=== PATIENT | female | born 2000 | race Caucasian/White ===

== ENCOUNTER 2023-08-27 01:40 | Inpatient (IN) ==
[2023-08-27 04:40] LABS: Hematocrit (blood only) 30.7 % (37.0-47.0); Hemoglobin 10.3 g/dl (12.0-16.0); Mean Corpuscular Hemoglobin 28.3 pg (25.0-34.0); Mean Corpuscular Hgb Conc 33.6 g/dL (32.0-36.0); Mean Corpuscular Volume 84.3 fL (80.0-100.0); Mean Platelet Volume 11.2 fL (9.4-12.4); Platelet Count 221 K/uL (130-400); RDW Coefficient of Variation 12.9 % (11.5-14.5); RDW Standard Deviation 39.5 fL (36.4-46.3); Red Blood Count 3.64 M/uL (4.20-5.40)
[2023-08-27] MEDS ORDERED: LIDOCAINE 1% LOCAL 20 ML VIAL INFIL PRN (04:41)
[2023-08-27] MEDS ORDERED: OXYTOCIN 30 UNITS/500 ML BAG IV PRN ×3 (04:41→11:51)
[2023-08-27] MEDS ORDERED: LACTATED RINGER'S 1,000 ML IV PRN (04:41)
--- NOTE | 2023-08-27 07:04 | Labor Progress Brief Note ---
Date of Service August 27, 2023 Subjective Patient notes contractions. thinks more regular but strength has not increased. Assessment & Plan (1) Supervision of normal first : Trimester: third trimester Qualified Code(s): Z34.03 - Encounter for supervision of normal first , third trimester Plan Has been 6+hours since rom. Not alot of progress. arom of forebag and will add pitocin. Fetus category one. Patient agrees with plan. Admission and Anticipated Discharge Date Admission Date: August 27, 2023 Physical Exam Physical Exam: cx--5/100/-2 toco--q3-6 efm--120s wtih mod variabiltiy, accels to 160, no decels Results & Data Vital Signs (Past 12 Hours) Vital Signs Temp Pulse Resp BP O2 Del Method 08/27/23 06:06 36.8 C 08/27/23 04:11 36.9 C 78 18 123/83 08/27/23 01:55 36.8 C 18 Room Air 08/27/23 01:55 36.8 C 89 18 136/86 Coding Level of Care Code None Diagnoses Encounter for supervision of normal first in third trimester Z34.03 Trimester: third trimester
[2023-08-27] MEDS ORDERED: SODIUM CHLORIDE 0.9% PF INJ 10 ML VIAL ONE (08:00)
[2023-08-27] MEDS ORDERED: fentANYL 2 MCG/ML BUPIVacaine 0.125%-NSS 100ML BAG ONE (08:00)
[2023-08-27] MEDS ORDERED: BUPIVACAINE 0.25% PF 30 ML VIAL ONE (08:00)
[2023-08-27] MEDS ORDERED: ePHEDrine sulfate 50 MG/ML AMP ONE (08:00)
[2023-08-27] MEDS ORDERED: fentaNYL citrate PF 100 MCG/2 ML VIAL ONE (08:00)
[2023-08-27] MEDS ORDERED: LIDOCAINE 2%/EPINEPHRINE 1:200,000 20 ML PF ONE (08:00)
[2023-08-27] MEDS ORDERED: NALOXONE HCL 1 MG in SODIUM CHLORIDE 0.9% 1,000 ML IV PRN (08:08)
[2023-08-27] MEDS ORDERED: ROPIVACAINE 0.5% PF 5 MG/ML 20 ML VIAL EPI PRN (08:08)
[2023-08-27] MEDS ORDERED: fentANYL 2 MCG/ML BUPIVacaine 0.125%-NSS 100ML BAG EPI PRN (08:08)
[2023-08-27] MEDS ORDERED: BUPIVACAINE 0.25% PF 30 ML VIAL EPI STA (08:08)
[2023-08-27] MEDS ORDERED: BUPIVACAINE 0.25% PF 30 ML VIAL EPI PRN (08:08)
[2023-08-27] MEDS ORDERED: fentaNYL citrate PF 100 MCG/2 ML VIAL EPI STA (08:08)
[2023-08-27] MEDS ORDERED: LIDOCAINE 2% MPF LOCAL 5 ML VIAL EPI PRN (08:08)
[2023-08-27] MEDS ORDERED: ePHEDrine sulfate 50 MG/ML AMP IV PRN (08:08)
[2023-08-27] MEDS ORDERED: SODIUM CHLORIDE 0.9% PF INJ 10 ML VIAL EPI PRN (08:08)
[2023-08-27] MEDS ORDERED: diphenhydrAMINE 50 MG/ML VIAL IV PRN (08:08)
[2023-08-27] MEDS ORDERED: NALBUPHINE HCL INJ 10 MG/ML AMP IV PRN (08:08)
[2023-08-27] MEDS ORDERED: fentaNYL citrate PF 100 MCG/2 ML VIAL EPI PRN (08:08)
[2023-08-27] MEDS ORDERED: NALOXONE HCL 0.4 MG/1 ML VIAL/CARP IV PRN (08:08)
[2023-08-27] MEDS ORDERED: LIDOCAINE 2%/EPINEPHRINE 1:200,000 20 ML PF EPI STA (08:08)
[2023-08-27] MEDS ORDERED: SODIUM CHLORIDE 0.9% PF INJ 10 ML VIAL EPI STA (08:08)
--- NOTE | 2023-08-27 08:08 | Anesthesiology Consultation ---
Date of Service August 27, 2023 Assessment & Plan (1) Encounter for pre-operative examination: Chart Review Chart Review: Patient NOT seen in Pre Admission Testing and Acceptable Risk for Labor Epidural Consults Requested none History Height/Weight Height: 5 ft 3 in Weight: 74.843 kg Allergies Allergy/AdvReac Type Severity Reaction Status Date / Time No Known Allergies Allergy Verified 08/27/23 04:27 Medications Home Medications Medication Instructions Recorded Confirmed Last Taken prenat.vits,hemant,jyg-mryq-ralid 1 tab PO DAILY 01/20/23 08/27/23 08/26/23 Active Medications Generic Name Dose Route Start Last Admin Trade Name Freq PRN Reason Stop Dose Admin Lactated Ringer's 1,000 mls @ 125 mls/hr 08/27/23 04:41 08/27/23 07:07 Lr IV 08/29/23 04:40 125 mls/hr .Q8H PRN Administration L&D Protocol Protocol Oxytocin 30 units in 500 mls @ 1 mls/hr 08/27/23 07:00 08/27/23 07:39 Pitocin IV 08/29/23 06:59 0.06 units/hr .Q24H PRN 1 mls/hr Labor Induction/Augmentation Administration Protocol 0.06 UNITS/HR Past Medical History Medical History Depression Anxiety Varicella vaccine Past Family History Family History Grandmother Breast cancer Denies family history of Ovarian cancer Prostate cancer Myocardial infarction Colorectal cancer Past Surgical History Surgical History S/P wisdom tooth extraction H/O oral surgery Social History Smoking Status: Never smoker Do You Dip or Chew Tobacco: No Hx Alcohol Use: No Hx Substance Use: No Physical Exam Vital Signs Last Vital Signs Temp 98.2 F 08/27/23 06:06 Pulse 80 08/27/23 07:01 Resp 18 08/27/23 04:11 BP 130/90 08/27/23 07:01 O2 Del Method Room Air 08/27/23 01:55 Testing Laboratory Results 08/27/23 03:01
[2023-08-27] MEDS ORDERED: ONDANSETRON INJ 2 MG/ML 2 ML VIAL IV PRN (10:40)
[2023-08-27] MEDS ORDERED: oxyCODONE/ACETAMINOPHEN 5mg/325mg TAB PO PRN (11:51)
[2023-08-27] MEDS ORDERED: BENZOCAINE 20% SPRY 85 APPLN/85 GM CAN EXT PRN (11:51)
[2023-08-27] MEDS ORDERED: DIPHTHERIA/TETANUS/PERTUSSIS Vaccine (Tdap, Age 7+yrs) 0.5mL SYR/VL IM ONE (11:51)
[2023-08-27] MEDS ORDERED: ACETAMINOPHEN 325 MG TAB PO PRN (11:51)
[2023-08-27] MEDS ORDERED: HYDROCORTISONE ACETATE 25 MG SUPP PR PRN (11:51)
[2023-08-27] MEDS ORDERED: bisacodyL 10 MG SUPP PR PRN (11:51)
--- NOTE | 2023-08-27 11:57 | Delivery Summary ---
Vaginal Delivery Summary Date of Service August 27, 2023 Vaginal Delivery Summary and 2nd Degree LAC Patient is a 22-year-old 1 P0 female EDC of 11-23 who presented with spontaneous rupture of membranes at approximately midnight. 4 eden were ruptured for clear fluid and Pitocin augmentation was begun. She progressed to full dilation with epidural analgesia. She pushed effectively over intact perineum for delivery of a viable male infant. Rest of the infant delivered with hyperflexion of the hips. The was then placed on the mother's abdomen for further attention and drying. He was vigorous and moving all 4 limbs. The cord was clamped and cut after 1 minute. After cord blood was obtained, the placenta was expressed intact with a three-vessel cord. bleeding was controlled with dilute Pitocin and fundal massage. Second-degree perineal laceration was repaired with 3-0 chromic in the usual fashion. A right labial first-degree laceration was not bleeding and therefore not repaired. Estimated blood loss 200 cc. Mother and infant doing well after delivery. [facility] Vaginal Delivery Charge Delivery Type Details: and 2nd Degree LAC
--- NOTE | 2023-08-27 13:14 | Anesthesia Procedure Note ---
Date of Service August 27, 2023 Anesthesia Post Epidural Note Vital Signs Vital Signs: Temp Pulse Resp BP Pulse Ox O2 Del Method 98.2 F 82 22 129/74 95 Room Air 08/27/23 10:04 08/27/23 13:00 08/27/23 10:04 08/27/23 13:00 08/27/23 11:40 08/27/23 01:55 Notes Mental Status: alert / awake / arousable and participated in evaluation Nausea / Vomiting: adequately controlled Pain: adequately controlled Airway Patency, RR, SpO2: stable & adequate BP & HR: stable & adequate Hydration State: stable & adequate Neuraxial Anesthesia: was administered and sensory block is resolving Anesthetic Complications: no major complications apparent and Pt Satisfied with anesthetic care Epidural: Removed without complications and With tip intact
[2023-08-27] MEDS: IBUPROFEN 600 MG TAB PO PRN (17:09)
[2023-08-27] MEDS: DOCUSATE SODIUM 100 MG CAP PO SCH (20:46)
[2023-08-28] MEDS: IBUPROFEN 600 MG TAB PO PRN ×3 (01:51→17:05)
--- NOTE | 2023-08-28 06:38 | Obstetrical Progress Note ---
Date of Service <Carmen Singh MD - Last Filed: 08/28/23 07:12> August 28, 2023 Assessment & Plan <Carmen Singh MD - Last Filed: 08/28/23 07:12> (1) Encounter for assessment: Plan Patient with the above mentioned history and findings was evaluated at bedside and found awake, alert, oriented in all spheres, afebrile, and in no acute distress. Vital signs showed no fever and blood pressures remained stable and she has remained without symptoms of severity (e.g. vision changes, headaches, oliguria, etc.). Her blood type is A positive and today's hemoglobin is 8.5 g/dL. She denies symptoms of anemia such as dizziness, lightheadedness, or tachycardia. She is GBS negative and rubella immune. Overall, patient is doing well clinically and meeting the desired milestones. Since she is found to be clinically and hemodynamically stable, will discharge today with follow up with her OB in 6 weeks for her routine pp evaluation. Discharge instructions discussed. All questions were answered. <Betzaida Souza MD, FACOG - Last Filed: 08/28/23 07:26> (1) Encounter for assessment: Subjective <Carmen Singh MD - Last Filed: 08/28/23 07:12> Crystal is a 22 y/o female who is now PPD # 1 following at 39 6/7. Reports feeling well overall this morning. Refers mild abdominal cramping & 3/10 pain well managed on analgesics. Voiding spontaneously without difficulty. She is passing flatus but has not yet had a bowel movement. Tolerating meals overnight and able to ambulate some. Some persistent lochia with some improvement this morning. She is and supplementing with bottle feeds. Constitutional: no fever, no chills or no sweats Denies shortness of breath or difficulty breathing Cardiovascular: no chest pain or no palpitations Breast: no breast pain Genitourinary (female): no dysuria Neurologic: no headache(s) Denies changes in vision Physical Exam <Carmen Singh MD - Last Filed: 08/28/23 07:12> General: Alert. Oriented to person, time, and place. Afebrile. No acute distress. Eyes: pupils equal and reactive to light bilaterally, extraocular movements intact. Cardiac: Regular rate and rhythm, no murmurs/rubs/gallops. Respiratory: Clear to auscultation bilaterally a/p, no wheezes/rales/rhonchi. No increased work of breathing. Symmetrical chest rise. No respiratory distress. Abdomen: Soft, nontender, nondistended. Bowel sounds present. Uterus: Uterine fundus firm, non-tender, and palpable below umbilicus. Lower Extremities: No lower extremity edema or swelling. No deep calf pain. Cooper's negative bilaterally. Psych: Euthymic affect. Mood and affect congruence. Regular speech rate and content. Results & Data <Carmen Singh MD - Last Filed: 08/28/23 07:12> Vital Signs (Past 12 Hours) Vital Signs Temp Pulse Resp BP Pulse Ox O2 Del Method 08/28/23 04:00 36.7 C 78 16 123/84 98 Room Air 08/27/23 23:10 36.7 C 79 16 128/85 97 Room Air 08/27/23 20:35 36.6 C 68 16 128/86 99 Room Air Supervising Physician <Betzaida Souza MD, FACOG - Last Filed: 08/28/23 07:26> Co-Signing Physician Notes Resident Physician Supervision Note: I interviewed and examined the patient. Discussed with Dr. Singh and agree with findings and plan as documented in the note. Any exceptions or clarifications are listed here: [None] Documented By: Betzaida Souza MD, FACOG Resident Activity Tracking <Carmen Singh MD - Last Filed: 08/28/23 07:12> Resident Involvement: Resident Care Provided Care Provided: OB Delivery
[2023-08-28 06:56] LABS: Hematocrit (blood only) 25.7 % (37.0-47.0); Hemoglobin 8.5 g/dl (12.0-16.0); Mean Corpuscular Hemoglobin 28.1 pg (25.0-34.0); Mean Corpuscular Hgb Conc 33.1 g/dL (32.0-36.0); Mean Corpuscular Volume 84.8 fL (80.0-100.0); Mean Platelet Volume 11.7 fL (9.4-12.4); Platelet Count 214 K/uL (130-400); RDW Coefficient of Variation 13.1 % (11.5-14.5); RDW Standard Deviation 40.1 fL (36.4-46.3); Red Blood Count 3.03 M/uL (4.20-5.40); White Blood Count 13.76 K/ul (4.8-10.8)
[2023-08-28] MEDS: DOCUSATE SODIUM 100 MG CAP PO SCH ×2 (08:24→20:20)
[2023-08-28] MEDS: PRENATAL VITAMIN 1 TAB PO SCH (08:24)
[2023-08-28] MEDS ORDERED: bisacodyL 5 MG TABEC PO SCH (20:00)
--- NOTE | 2023-08-29 06:07 | Obstetrical Progress Note ---
Date of Service <Carmen Singh MD - Last Filed: 08/29/23 07:07> August 29, 2023 Assessment & Plan <Carmen Singh MD - Last Filed: 08/29/23 07:07> (1) Encounter for assessment: Plan Patient with the above mentioned history and findings was evaluated at bedside and found awake, alert, oriented in all spheres, afebrile, and in no acute distress. Vital signs showed no fever and blood pressures remained stable but borderline high. She has remained without symptoms of severity (e.g. vision changes, headaches, oliguria, etc.). Her blood type is A positive and most recent hemoglobin is 8.5 g/dL. She denies symptoms of anemia such as dizziness, lightheadedness, fatigue, or tachycardia. She is GBS negative and rubella immune. Overall, patient is doing well clinically and meeting the desired milestones. Due to her BPs, will order new set of labs. Pending these results, will consider discharge today since she is found to be clinically and hemodynamically stable. Discussed that, should she be discharged today, she should be seen in the clinic next week for a BP check. She is to call to schedule an appointment with her OB in 6 weeks for her routine pp evaluation. Discharge instructions discussed. All questions were answered. <Kassandra Mahmood MD - Last Filed: 08/29/23 08:08> (1) Encounter for assessment: Subjective <Carmen Singh MD - Last Filed: 08/29/23 07:07> Crystal is a 22 y/o female who is now PPD # 2 following at 39 6/7. Reports feeling well overall this morning. Refers mild abdominal cramping & 3/10 pain well managed on analgesics. Voiding spontaneously without difficulty. She is passing flatus and has had a bowel movement. Tolerating meals overnight and able to ambulate. Some persistent lochia with some improvement this morning. She is and supplementing with bottle feeds. She was to be discharged yesterday, but discharge order was cancelled after nursing staff communicated she preferred to stay an additional day since her baby was not latching on well for . Today she reports her baby is latching and eating better. Constitutional: no fever, no chills or no sweats Denies shortness of breath or difficulty breathing Cardiovascular: no chest pain or no palpitations Breast: no breast pain Genitourinary (female): no dysuria Neurologic: no headache(s) Denies changes in vision Physical Exam <Carmen Singh MD - Last Filed: 08/29/23 07:07> General: Alert. Oriented to person, time, and place. Afebrile. No acute distress. Eyes: pupils equal and reactive to light bilaterally, extraocular movements intact. Cardiac: Regular rate and rhythm, no murmurs/rubs/gallops. Respiratory: Clear to auscultation bilaterally a/p, no wheezes/rales/rhonchi. No increased work of breathing. Symmetrical chest rise. No respiratory distress. Abdomen: Soft, nontender, nondistended. Bowel sounds present. Uterus: Uterine fundus firm, non-tender, and palpable below umbilicus. Lower Extremities: No lower extremity edema or swelling. No deep calf pain. Cooper's negative bilaterally. Psych: Euthymic affect. Mood and affect congruence. Regular speech rate and content. Results & Data <Carmen Singh MD - Last Filed: 08/29/23 07:07> Vital Signs (Past 12 Hours) Vital Signs Temp Pulse Resp BP Pulse Ox O2 Del Method 08/28/23 23:14 36.8 C 87 18 126/83 99 Room Air 08/28/23 19:04 36.7 C 76 18 137/89 99 Room Air Supervising Physician <Kassandra Mahmood MD - Last Filed: 08/29/23 08:08> Co-Signing Physician Notes Resident Physician Supervision Note: I interviewed and examined the patient. Discussed with Dr. Singh and agree with findings and plan as documented in the note. Any exceptions or clarifications are listed here: PP2 s/p , doing well. VSS, had some mild range BPs but denies s/s. Desires dc home today, will get pet labs just to make sure and then ok to dc w/ bp check next week Documented By: Kassandra Mahmood MD Resident Activity Tracking <Carmen Singh MD - Last Filed: 08/29/23 07:07> Resident Involvement: Resident Care Provided Care Provided: OB Delivery
[2023-08-29] MEDS: DOCUSATE SODIUM 100 MG CAP PO SCH (06:53)
[2023-08-29] MEDS: PRENATAL VITAMIN 1 TAB PO SCH (06:53)
[2023-08-29] MEDS: IBUPROFEN 600 MG TAB PO PRN (06:53)
[2023-08-29 07:07] LABS: Hematocrit (blood only) 27.4 % (37.0-47.0)
[2023-08-29 07:38] LABS: Albumin Globulin Ratio 1.1 (0.9-2); Albumin Level 3.1 gm/dl (3.4-5.0); BUN Creatinine Ratio 9.9 (10-20); Bilirubin,Total 0.3 mg/dl (0.2-1.0); Calcium 8.4 mg/dl (8.6-10.3); Creatinine Clr Calc Pharmacy 121.4 ml/min; Est GFR (African American) 141.1 ml/min; Est GFR (Non-African American) 121.8 ml/min; Globulin 2.8 gm/dl (2.5-4.0); Potassium 3.8 mmol/L (3.5-5.1); Total Protein 5.9 gm/dl (6.0-8.3)
[2023-08-29 07:41] LABS: Hemoglobin 8.4 g/dl (12.0-16.0); Mean Corpuscular Hemoglobin 27.8 pg (25.0-34.0); Mean Corpuscular Hgb Conc 32.3 g/dL (32.0-36.0); Mean Corpuscular Volume 86.1 fL (80.0-100.0); Mean Platelet Volume 11.3 fL (9.4-12.4); Platelet Count 267 K/uL (130-400); RDW Coefficient of Variation 13.1 % (11.5-14.5); RDW Standard Deviation 40.6 fL (36.4-46.3); Red Blood Count 3.02 M/uL (4.20-5.40); White Blood Count 14.06 K/ul (4.8-10.8)
== END 2023-08-29 10:00 | disposition home or self-care (01) | DRG 807 ==
LOC: OPB 01:40 → 4S1 01:42 → 4E2 14:57

== ENCOUNTER 2024-10-27 11:19 | Inpatient (IN) ==
[2024-10-27] MEDS ORDERED: ONDANSETRON 4 MG OD TAB PO PRN (12:18)
[2024-10-27] MEDS ORDERED: ACETAMINOPHEN 325 MG TAB PO PRN (12:18)
[2024-10-27 16:18] LABS: Hematocrit (blood only) 32.1 % (37.0-47.0); Hemoglobin 10.4 g/dl (12.0-16.0); Mean Corpuscular Hemoglobin 26.4 pg (25.0-34.0); Mean Corpuscular Hgb Conc 32.4 g/dL (32.0-36.0); Mean Corpuscular Volume 81.5 fL (80.0-100.0); Platelet Count 242 K/uL (130-400); RDW Coefficient of Variation 12.9 % (11.5-14.5); RDW Standard Deviation 37.8 fL (36.4-46.3); Red Blood Count 3.94 M/uL (4.20-5.40)
[2024-10-27] MEDS ORDERED: CALCIUM CARBONATE 500 MG CHEWABLE TAB PO PRN (18:52)
[2024-10-27] MEDS ORDERED: ACETAMINOPHEN 500 MG TAB PO PRN (18:52)
--- NOTE | 2024-10-27 19:03 | History & Physical Report ---
Date of Service October 27, 2024 Assessment & Plan (1) Encounter for supervision of normal in multigravida: Plan: Crystal is a 23-year-old G2, P1 currently at 36 weeks 5 days gestational age presented with bleeding and contractions. Has had worsening contractions over time currently occurring every 3 to 4 minutes and has had consistent cervical change and is currently 4 cm, 80% effaced and -1 station. Will admit for labor. Will penicillin for GBS unknown. Vitals within normal limits. (2) labor in third trimester: (3) Vaginal bleeding in : History of Present Illness Primary Care Provider: Alessandro Davenport Crystal is a 23-year-old G2, P1 currently at 36 weeks 5 days gestational age. Initially presented for evaluation of vaginal bleeding and contractions earlier this morning. Was noted to have small amount of blood products in vaginal vault on exam this morning. Has had no significant additional bleeding since evalu ation. At first evaluation she was found to be 1 cm dilated several hours later she was noted to have progressed to 2-1/2 cm dilated and on recent check was noted to be 4 cm dilated. Discussed admission for labor at 36 weeks. is otherwise uncomplicated to date. Has a prior term vaginal delivery without complication. OB Labs: Blood Type A Positive 04/27/24 Antibody Screen NEGATIVE 04/27/24 Hgb 10.8 g/dl (12.0-16.0) L 08/29/24 Hct 33.2 % (37.0-47.0) L 08/29/24 MCV 86.5 fL (80.0-100.0) 04/27/24 Plt Count 332 K/uL (130-400) 04/27/24 Rubella IgG Antibody Immune (Immune) 04/27/24 RPR Nonreactive (Nonreactive) 04/27/24 Treponema pallidum Ab Negative (Negative) 08/29/24 Hep Bs Antigen NON-REACTIVE (NON-REACTIVE) 04/27/24 Hepatitis C Ab (EIA) NON-REACTIVE (NON-REACTIVE) 04/27/24 HIV (1&2) Ag & Ab Conf NON-REACTIVE (NON-REACTIVE) 04/27/24 Glucose 1 Hr 50 gm 78 mg/dl (70-130) 08/29/24 Maternal Serum AFP 60.2 ng/mL 06/20/24 OB Optional Labs: Chlamydia trachomatis RNA Not Detected (NotDetected) 03/31/24 Neisseria gonorrhoeae RNA Not Detected (NotDetected) 03/31/24 Thyroid Stimulating Hormone (TSH) 1.599 uIu/ml (0.300-4.500) 12/08/22 Alpha Fetoprotein Triple Screen SEE NOTE 06/20/24 Labs Reviewed: cf/sma-negative prior --mln low risk panorama--akh neg afp--akh Allergies Allergy/AdvReac Type Severity Reaction Status Date / Time No Known Allergies Allergy Verified 10/27/24 11:36 Home Medications Medication Instructions Recorded Confirmed Type vits no.124-ferrous fum tab 10/27/24 History 27 mg iron-folic acid 800 mcg tablet ( Vitamin) Patient History Medical History (Updated 10/27/24 @ 19:00 by Aram Savage MD) Encounter for assessment Encounter for pre-operative examination Depression Anxiety Varicella vaccine Surgical History (Updated 03/23/24 @ 15:12 by Melanie Salmon) S/P wisdom tooth extraction Family History Grandmother Breast cancer Denies family history of Ovarian cancer Prostate cancer Myocardial infarction Colorectal cancer Social History (Updated 03/23/24 @ 15:08 by Melanie Salmon) Smoking Status: Never smoker Second Hand Exposure: No; Do You Dip or Chew Tobacco: No; Hx Alcohol Use: No Hx Substance Use: No Preferred Language: Romanian Communication Ability: Effective 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 Beliefs That Will Affect Care: None marital status: Single marital status details: MattadrianaMarthaAngelito Alana (22) [phone] Current Living Situation: Significant Other Current Living Situation Comment: and son current occupational status: employed current occupation: [employer] Assistive Devices: None Physical Exam Genitourinary: Manual OB Exam: + cervical dilation 4 cm, + cervical effacement 80% and + station -1 OB Exam Monitor Tracing: + external FHT monitor used, + external uterine monitor used, + category I and + normal FHT variability Results & Data Vital Signs (Past 12 Hours) Vital Signs Temp Pulse Resp BP Pulse Ox 10/27/24 18:35 18 10/27/24 18:35 37.1 C 18 10/27/24 18:32 18 10/27/24 18:32 18 10/27/24 14:25 88 10/27/24 14:25 37.2 C 18 105/67 10/27/24 11:37 93 H 124/82 10/27/24 11:34 97 H 99 10/27/24 11:29 90 98 10/27/24 11:24 90 99 10/27/24 11:22 36.9 C 88 18 125/83 Coding Level of Care Code None Diagnoses Encounter for supervision of normal in multigravida Z34.80 labor in third trimester O60.03 Vaginal bleeding in O46.90
[2024-10-27] MEDS: SODIUM CHLORIDE 0.9% 500 ML IV SCH (19:29)
[2024-10-27] MEDS: PENICILLIN GK 6 MU in SODIUM CHLORIDE 0.9% 250 ML IV STA (19:50)
[2024-10-27] MEDS: SODIUM CHLORIDE 0.9% 1,000 ML IV SCH (20:00)
--- NOTE | 2024-10-27 20:21 | Anesthesiology Consultation ---
Date of Service October 27, 2024 Assessment & Plan (1) Encounter for pre-operative examination: Chart Review Chart Review: Acceptable Risk for Labor Epidural History Height/Weight Height: 5 ft 3 in Weight: 71.214 kg Allergies Allergy/AdvReac Type Severity Reaction Status Date / Time No Known Allergies Allergy Verified 10/27/24 11:36 Medications Home Medications Medication Instructions Recorded Confirmed Last Taken vits no.124-ferrous fum tab 10/27/24 10/26/24 27 mg iron-folic acid 800 mcg tablet ( Vitamin) Active Medications Generic Name Dose Route Start Last Admin Trade Name Freq PRN Reason Stop Dose Admin Sodium Chloride 500 mls @ 50 mls/hr 10/27/24 19:00 10/27/24 20:00 Nss IV 10/28/24 04:59 Infused .Q10H KARISHMA Infusion Past Medical History Medical History (Updated 10/27/24 @ 20:21 by Justino Luz MD) Depression Anxiety Varicella vaccine Past Family History Family History Grandmother Breast cancer Denies family history of Ovarian cancer Prostate cancer Myocardial infarction Colorectal cancer Past Surgical History Surgical History S/P wisdom tooth extraction Social History Smoking Status: Never smoker Do You Dip or Chew Tobacco: No Hx Alcohol Use: No Hx Substance Use: No Physical Exam Vital Signs Last Vital Signs Temp 36.6 C 10/27/24 19:16 Pulse 106 H 10/27/24 19:25 Resp 18 10/27/24 18:35 BP 133/87 10/27/24 19:25 Pulse Ox 99 10/27/24 11:34 Testing Laboratory Results 10/27/24 15:52 Blood Type A Positive 10/27/24 15:52 Antibody Screen NEGATIVE 10/27/24 15:52
[2024-10-27] MEDS: OXYTOCIN 30 UNITS/NSS 30 UNITS/500 ML BAG IV PRN (20:37)
[2024-10-27] MEDS: LIDOCAINE 1% LOCAL 20 ML VIAL INFIL PRN (20:40)
[2024-10-27] MEDS ORDERED: bisacodyL 10 MG SUPP PR PRN (20:57)
[2024-10-27] MEDS ORDERED: HYDROCORTISONE ACETATE 25 MG SUPP PR PRN (20:57)
[2024-10-27] MEDS ORDERED: OXYTOCIN 30 UNITS/NSS 30 UNITS/500 ML BAG IV PRN (20:57)
--- NOTE | 2024-10-27 21:01 | Delivery Summary ---
Vaginal Delivery Summary Date of Service October 27, 2024 Vaginal Delivery Summary and 2nd Degree LAC Spontaneously progressed to 10 cm dilated 100% effaced +2 station pushed over intact perineum without anesthesia and delivered a viable male with weight and Apgars pending. Head the delivered without difficulty quickly followed by shoulders and body. There is noted to be a tight double nuchal cord which was reduced after delivery. was noted be vigorous after delivery and a 1 minute delayed cord clamping was initiated. Cord was then double clamped and cut remained on maternal abdomen. Cord blood obtained and attention turned to deliver the placenta was delivered intact with three-vessel cord with gentle cord traction. Inspection of perineum vagina and cervix there is noted to be a small second-degree perineal laceration which was repaired with 3-0 Vicryl in the traditional crown stitch. Needle sponge and instrument counts are correct at the completion of the case. Both mother and stable in the immediate post delivery timeframe. No complications noted and blood loss per QBL. [facility] Vaginal Delivery Charge Delivery Type Details: and 2nd Degree LAC
[2024-10-27] MEDS: BENZOCAINE 20% SPRY 85 APPLN/85 GM CAN EXT PRN (21:29)
[2024-10-27] MEDS: ACETAMINOPHEN 325 MG TAB PO PRN (21:29)
[2024-10-27] MEDS: DOCUSATE SODIUM 100 MG CAP PO SCH (21:29)
[2024-10-27] MEDS: DIPHTHER/TETAN/PERTUS Vaccine (Tdap, Adol/Adult) 0.5mL IM ONE (21:30)
[2024-10-27] MEDS: IBUPROFEN 600 MG TAB PO PRN (21:30)
[2024-10-27] MEDS ORDERED: PENICILLIN GK 3 MU in DEXTROSE 5% 100 ML IV PRN (21:52)
[2024-10-28] MEDS: BUTORPHANOL TARTRATE 2 MG/ML VIAL IV ONE (05:56)
[2024-10-28] MEDS: ePHEDrine sulfate 50 MG/ML AMP ONE (05:57)
[2024-10-28] MEDS: LIDOCAINE 2%/EPINEPHRINE 1:200,000 20 ML PF ONE (05:57)
[2024-10-28] MEDS: fentANYL 2 MCG/ML BUPIVacaine 0.125%-NSS 100ML BAG ONE (05:57)
[2024-10-28] MEDS: BUPIVACAINE 0.25% PF 30 ML VIAL ONE (05:57)
[2024-10-28] MEDS: SODIUM CHLORIDE 0.9% PF INJ 10 ML VIAL ONE (05:57)
[2024-10-28] MEDS: fentaNYL citrate PF 100 MCG/2 ML VIAL ONE (05:57)
--- NOTE | 2024-10-28 06:20 | Obstetrical Progress Note ---
Date of Service October 28, 2024 Assessment & Plan (1) state: (2) Perineal laceration during delivery: Plan Crystal is a 23yo day 1 s/p w/ 2nd deg perineal laceration. Feeling well this AM, VSS. Continue care Encourage ambulation and Pain control as needed Hgb: 10.4, asymptomatic Home tomorrow or next day Followup with Dr. Savage in 6wks. Admission and Anticipated Discharge Date Admission Date: October 27, 2024 Supervising Physician Co-Signing Physician Notes Patient seen with resident and agree with the above findings and plan. Routine care Subjective Crystal is a 23yo day 1 s/p w/ 2nd deg perineal laceration. Feeling well this AM, endorses some sleep overnight. Pain: endorses some abdominal cramping Ambulation: yes Gas: yes Voiding: urinating, no BM Lochia: steady Diet: tolerating well Feeds: and supplementing Denies headache, chest pain, SOB, n/v/d, LE pain/swelling, LE numbness/tingling. Review of Systems Review of Systems: Denies fever, body aches, chills, sweats, vision changes, significant vaginal bleeding/discharge. Physical Exam Physical Exam: General: A&Ox3, resting comfortably in bed, in no apparent distress, nontoxic in appearance Skin: warm, dry, intact HEENT: EOM intact, PERRL b/l Cardiovascular: RRR, +s1/s2, no murmurs/rubs/gallops Pulmonary: clear to auscultation b/l, no wheezes/rales/rhonchi GI/Abd: +BS, uterine fundus firm, nontender to palpation, 1fingerwidth inferior to level of umbilicus Extremities: no significant swelling or erythema of b/l LE, nontender to palpation, negative Cooper's b/l; warm, no clubbing or cyanosis Neuro: no facial droop, speech intact, moves all extremities on command Results & Data Vital Signs (Past 12 Hours) Vital Signs Temp Pulse Pulse Resp BP BP Pulse Ox 10/28/24 02:52 36.8 C 67 16 114/74 97 10/27/24 23:30 36.8 C 68 18 120/84 98 10/27/24 22:55 18 10/27/24 22:55 68 10/27/24 22:55 120/84 10/27/24 22:40 76 10/27/24 22:40 121/84 10/27/24 22:25 16 10/27/24 22:25 81 10/27/24 22:25 122/86 10/27/24 22:10 75 10/27/24 22:10 125/83 10/27/24 21:55 18 10/27/24 21:55 79 10/27/24 21:55 125/80 10/27/24 21:40 18 10/27/24 21:40 80 10/27/24 21:40 133/80 10/27/24 21:25 16 10/27/24 21:25 82 10/27/24 21:25 148/87 H 10/27/24 21:10 16 10/27/24 21:10 71 10/27/24 21:10 137/80 10/27/24 20:58 74 10/27/24 20:58 142/71 H 10/27/24 20:55 18 10/27/24 20:36 69 10/27/24 20:36 134/84 10/27/24 19:25 106 H 10/27/24 19:25 133/87 10/27/24 19:16 36.6 C 10/27/24 18:35 18 10/27/24 18:35 37.1 C 18 10/27/24 18:32 18 10/27/24 18:32 18 O2 Del Method 10/28/24 02:52 Room Air 10/27/24 23:30 Room Air 10/27/24 22:55 10/27/24 22:55 10/27/24 22:55 10/27/24 22:40 10/27/24 22:40 10/27/24 22:25 10/27/24 22:25 10/27/24 22:25 10/27/24 22:10 10/27/24 22:10 10/27/24 21:55 10/27/24 21:55 10/27/24 21:55 10/27/24 21:40 10/27/24 21:40 10/27/24 21:40 10/27/24 21:25 10/27/24 21:25 10/27/24 21:25 10/27/24 21:10 10/27/24 21:10 10/27/24 21:10 10/27/24 20:58 10/27/24 20:58 10/27/24 20:55 10/27/24 20:36 10/27/24 20:36 10/27/24 19:25 10/27/24 19:25 10/27/24 19:16 10/27/24 18:35 10/27/24 18:35 10/27/24 18:32 10/27/24 18:32 Laboratory Results 10/27/24 10/27/24 Range/Units 15:56 15:52 WBC 13.70 H (4.8-10.8) K/ul RBC 3.94 L (4.20-5.40) M/uL Hgb 10.4 L (12.0-16.0) g/dl Hct 32.1 L (37.0-47.0) % MCV 81.5 (80.0-100.0) fL MCH 26.4 (25.0-34.0) pg MCHC 32.4 (32.0-36.0) g/dL RDW Std Deviation 37.8 (36.4-46.3) fL RDW Coeff of Jairon 12.9 (11.5-14.5) % Plt Count 242 (130-400) K/uL MPV 11.0 (9.4-12.4) fL Treponema pallidum Ab Negative (Negative) Blood Type A Positive Antibody Screen NEGATIVE Resident Activity Tracking Resident Involvement: Resident Care Provided Care Provided: OB Delivery (2) Perineal laceration during delivery Perineal laceration degree: second degree Qualified Code(s): O70.1 - Second degree perineal laceration during delivery
[2024-10-28] MEDS: FERROUS SULFATE 325 MG TAB PO SCH (08:20)
[2024-10-28] MEDS: PRENATAL VITAMIN 1 TAB PO SCH (08:20)
[2024-10-28] MEDS: bisacodyL 5 MG TABEC PO SCH (21:41)
[2024-10-29 00:36] VITALS: O2SAT 99
--- NOTE | 2024-10-29 06:01 | Obstetrical Progress Note ---
Date of Service October 29, 2024 Assessment & Plan (1) state: (2) Perineal laceration during delivery: Plan Crystal is a 23yo day 2 s/p w/ 2nd deg perineal laceration. Feeling well this AM, VSS. Continue care Encourage ambulation and Pain control as needed Hgb: 10.4 on 10/28/24, asymptomatic Home today pending baby is circumcised and doing well Followup with Dr. Savage in 6wks. Admission and Anticipated Discharge Date Admission Date: October 27, 2024 Supervising Physician Co-Signing Physician Notes Resident Physician Supervision Note: I interviewed and examined the patient. Discussed with Dr. Villarreal and agree with findings and plan as documented in the note. Any exceptions or clarifications are listed here: [ ] Documented By: Randi Ramachandran MD, FACOG Subjective Crystal is a 23yo day 2 s/p w/ 2nd deg perineal laceration. Feeling well this AM, endorses some sleep overnight. Pain: denies Ambulation: yes Gas: yes Voiding: urinating, had BM Lochia: decreasing Diet: tolerating well Feeds: and supplementing Denies headache, chest pain, SOB, n/v/d, LE pain/swelling, LE numbness/tingling. Review of Systems Review of Systems: Denies fever, body aches, chills, sweats, vision changes, significant vaginal bleeding/discharge. Physical Exam Physical Exam: General: A&Ox3, resting comfortably in bed, in no apparent distress, nontoxic in appearance Skin: warm, dry, intact HEENT: EOM intact, PERRL b/l Cardiovascular: RRR, +s1/s2, no murmurs/rubs/gallops Pulmonary: clear to auscultation b/l, no wheezes/rales/rhonchi GI/Abd: +BS, uterine fundus firm, nontender to palpation, level of umbilicus Extremities: no significant swelling or erythema of b/l LE, nontender to palpation, negative Cooper's b/l; warm, no clubbing or cyanosis Neuro: no facial droop, speech intact, moves all extremities on command Results & Data Vital Signs (Past 12 Hours) Vital Signs Temp Pulse Resp BP Pulse Ox O2 Del Method 10/29/24 00:30 36.6 C 80 18 124/87 99 Room Air 10/28/24 20:00 36.6 C 66 18 120/82 100 Room Air Resident Activity Tracking Resident Involvement: Resident Care Provided Care Provided: OB Delivery (2) Perineal laceration during delivery Perineal laceration degree: second degree Qualified Code(s): O70.1 - Second degree perineal laceration during delivery
[2024-10-29 07:39] VITALS: BP 117/81; PULSE 89; RESP 16; TEMP 98.1
== END 2024-10-29 13:43 | disposition home or self-care (01) | DRG 807 ==
LOC: OPB 11:19 → 4S1 11:20 → 4E2 23:31